=== PATIENT | female | born 1995 | race Caucasian/White ===

== ENCOUNTER 2017-02-14 22:49 | Emergency (ER) | payer OTHER ==
[~2017-02-14] VITALS: Ht 162.6 cm; Wt 99.8 kg
[2017-02-14 22:57] VITALS: BP_SYST 136
[2017-02-14] MEDS ORDERED: LIDOCAINE 2%, 20 ML MDV IJ ONE (23:30)
[2017-02-15 00:03] VITALS: BP_SYST 125
== END 2017-02-15 00:03 | disposition home or self-care (01) ==
LOC: SED 22:49
DX: L05.01 Pilonidal cyst with abscess (principal)
CPT/HCPCS: 10080; 87070; 99284; J2001

== ENCOUNTER 2017-02-17 09:57 | Emergency (ER) | payer OTHER ==
[~2017-02-17] VITALS: Ht 162.6 cm; Wt 99.8 kg
[2017-02-17 10:04] VITALS: BP_SYST 130
[2017-02-17 10:34] VITALS: BP_SYST 130
== END 2017-02-17 10:33 | disposition home or self-care (01) ==
LOC: SED 09:57
DX: Z48.01 Encounter for change or removal of surgical wound dressing (principal)
CPT/HCPCS: 99283

== ENCOUNTER 2017-02-20 11:02 | Emergency (ER) | payer OTHER ==
[~2017-02-20] VITALS: Ht 162.6 cm; Wt 99.8 kg
[2017-02-20 11:22] VITALS: BP_SYST 116
[2017-02-20 12:20] VITALS: BP_SYST 109
== END 2017-02-20 12:20 | disposition home or self-care (01) ==
LOC: SED 11:02
DX: Z48.01 Encounter for change or removal of surgical wound dressing (principal)
CPT/HCPCS: 99283

== ENCOUNTER 2022-03-28 16:11 | Emergency (ER) | payer MEDICAID, OTHER ==
[~2022-03-28] VITALS: Ht 162.6 cm; Wt 90.7 kg
[2022-03-28 16:17] VITALS: BP_SYST 138
[2022-03-28] MEDS ORDERED: IBUP-1969 PO (21:38)
[2022-03-28 21:43] VITALS: BP_SYST 117
--- NOTE | 2022-03-28 21:44 | NUR ---
DC PT HOME AAOX4, NO SOB NOTED AND NAD. DC INSTRUCTION AND PRESCRIPTION WERE GIVEN TO PT ALSO INSTRUCTED TO F/U WITH HER PCP. SHE VERBALIZED UNDERSTANDING
--- NOTE | 2022-03-28 21:44 | NUR ---
PT RE EVALUATED BY DR. AMIN
== END 2022-03-28 21:45 | disposition home or self-care (01) ==
LOC: SED 16:11
DX: S93.401A Sprain of unspecified ligament of right ankle, initial encounter (principal); Z79.899 Other long term (current) drug therapy; W18.42XA Slipping, tripping and stumbling without falling due to stepping into hole or opening, initial encounter; Y93.89 Activity, other specified; Y92.89 Other specified places as the place of occurrence of the external cause; Y99.8 Other external cause status
CPT/HCPCS: 99283